=== PATIENT | female | born 1975 | race African-American/Black ===

== ENCOUNTER 2021-02-08 08:34 | Emergency (ER) | payer OTHER ==
[~2021-02-08] VITALS: Ht 152.4 cm; Wt 68.0 kg
== END 2021-02-08 10:25 | disposition home or self-care (01) ==
LOC: ED 08:34
DX: H66.91 Otitis media, unspecified, right ear (principal); I88.8 Other nonspecific lymphadenitis
CPT/HCPCS: 96372; 99283